=== PATIENT | male | born 1935 | race Caucasian/White ===

== ENCOUNTER 2019-12-19 19:36 | Emergency (ER) | payer BC, MEDICARE ==
[2019-12-19] MEDS ORDERED: TORAdol 30 mg Injection ONE (21:17)
[2019-12-19] MEDS ORDERED: TORAdol 30 mg Injection IV ONE (21:20)
[2019-12-19] MEDS ORDERED: Hydromorphone 1 mg/ml Ampule IV ONE (21:28)
[2019-12-19] MEDS ORDERED: Hydromorphone 1 mg/ml Ampule ONE (21:29)
[2019-12-19] MEDS ORDERED: Zofran 4 MG/2 ML VIAL ONE (22:18)
[2019-12-19] MEDS ORDERED: Zofran 4 MG/2 ML VIAL IV ONE (22:18)
[2019-12-19 22:23] LABS: BASOPHIL % 0.5 % (0.0-0.4); Basophil (Absolute #) 0.03 (0-0.4); Eosinophil % 1.4 % (0.00-5.0); Eosinophil (Absolute #) 0.09 (0-0.5); Hemoglobin 10.4 gm/dl (12.5-18.0); Lymphocyte (Absolute #) 1.49 (1.0-4.6); Lymphocytes % 23.5 % (24.0-44.0); Mean Cell Volume 86.4 fl (78-100); Mean Corpuscular Hgb Concent. 33.5 g/dl (32-36); Mean Platelet Volume 9.5 fl (7.5-11.0); Monocyte (Absolute #) 0.54 (0.0-1.3); Monocytes % 8.5 % (0.0-12.0); Neutrophil % 66.1 % (36.0-66.0); Platelet Count 150 K/mm3 (150-450); Red Blood Count 3.59 M/mm3 (4.1-5.6); Red Cell Distribution Width 13.7 % (11.5-14.0); White Blood Count 6.4 K/mm3 (4.0-10.5)
--- NOTE | 2019-12-19 22:30 | ERPHSYRPT ---
- History of Present Illness Time Seen by Provider: 12/19/19 20:10 Source: patient Exam Limitations: no limitations Patient Subjective Stated Complaint: Pt states he bought an inversion table. He was going to start putting it together a little at a time. So he started taking it out of the box. He went to step over a piece and fell on his face. Only complaint of pain is right shoulder Triage Nursing Assessment: Pt brought in by ambulance with cervical collar in place. Alert & oriented. Respirations easy and non-labored. Pt complaining of pain to right shoulder. No obvious deformities noted. Sensation intact. Pt unable to raise up arm due to increased pain Physician History: Is an 84-year-old male who was putting together an inversion table which she hoped would help his chronic low back pain when a piece got away from him and when he stepped on it it rolled and he went down on his right arm. He denies any loss of consciousness. He complains bitterly of pain in the shoulder and arm. He does have chronic atrial fib is on metoprolol 12.5 daily for control. He is anticoagulated with Eliquis. Occurred: just prior to arrival Reason for Fall: tripped Injuries/Pain Location: upper extremity (Right shoulder and arm) Loss of Consciousness: no loss of consciousness Quality: throbbing Severity of Pain-Max: severe Severity of Pain-Current: severe Modifying Factors: Improves With: movement Associated Symptoms (Fall): denies symptoms Allergies/Adverse Reactions: No Known Drug Allergies Allergy (Unverified 12/28/15 12:58) Home Medications: Apixaban [Eliquis] 5 mg PO DAILY 12/28/15 [History] Folic Acid 0.8 mg PO BID 12/28/15 [History] Hydrochlorothiazide 25 mg [hydroDIURIL 25 MG] 25 mg PO DAILY 12/28/15 [ History] Lisinopril 10 mg [Zestril 10 MG] 10 mg PO DAILY 12/28/15 [History] Magnesium 250 mg PO BID 12/28/15 [History] Methimazole [Tapazole] 5 mg PO HS 12/28/15 [History] Metoprolol Succinate 25 mg Xl* [Toprol-Xl 25MG Tablets] 12.5 mg PO HS [History] Multivit-Minerals/FA/Lycopene [One Daily For Men Tablet] 1 tab PO DAILY [History] Potassium Gluconate 250 mg PO BID 12/28/15 [History] Tamsulosin HCl 0.4 mg PO DAILY 12/28/15 [History] Travel Risk - International Travel Have you traveled outside of the country in past 3 weeks: No - Coronavirus Screening Close contact with a COVID-19 positive Pt in past 14-21 Days: No - Review of Systems Constitutional: No Fever, No Chills Eyes: No Symptoms Ears, Nose, & Throat: No Symptoms Respiratory: No Cough, No Dyspnea Cardiac: No Chest Pain, No Edema, No Syncope Abdominal/Gastrointestinal: No Abdominal Pain, No Nausea, No Vomiting, No Diarrhea Genitourinary Symptoms: No Dysuria Musculoskeletal: No Back Pain, No Neck Pain Skin: No Rash Neurological: No Dizziness, No Focal Weakness, No Sensory Changes Psychological: No Symptoms Endocrine: No Symptoms All Other Systems: Reviewed and Negative - Past Medical History Pertinent Past Medical History: Yes Neurological History: No Pertinent History ENT History: Cataracts Cardiac History: Arrhythmia, Hypertension Respiratory History: No Pertinent History Endocrine Medical History: Hyperthyroidism Musculoskeletal History: No Pertinent History GI Medical History: No Pertinent History History: No Pertinent History Psycho-Social History: Anxiety Male Reproductive Disorders: Prostate Problems - Past Surgical History Past Surgical History: Yes Other Surgical History: Tonsils, and cataract - Social History Smoking Status: Never smoker Drug Use: none - Nursing Vital Signs Nursing Vital Signs: Initial Vital Signs Temperature 98.2 F 12/19/19 19:47 Pulse Rate 61 12/19/19 19:47 Respiratory Rate 20 12/19/19 19:47 Blood Pressure 181/94 12/19/19 19:47 O2 Sat by Pulse Oximetry 92 L 12/19/19 19:47 Pain Scale Pain Intensity 0 - [place] Coma Score Best Eye Response (Ranjit): (4) open spontaneously Best Verbal Response ([place]): (5) oriented Best Motor Response (Ranjit): (6) obeys commands Ranjit Total: 15 - Physical Exam General Appearance: no apparent distress, alert Head Injury: no evidence of injury Eye Exam: PERRL/EOMI ENT Exam: airway nml Neck Exam: normal inspection, No tenderness Respiratory/Chest Exam: normal breath sounds, No chest tenderness, No respiratory distress Cardiovascular Exam: normal heart sounds, regular rate/rhythm Gastrointestinal Exam: soft, No tenderness, No distention, No guarding, No ecchymosis Back Exam: normal inspection, No vertebral tenderness Extremity Exam: other (Examination of extremities other than the right upper extremity is normal the right upper extremity shows tenderness at the shoulder there is also some deformity and swelling mid arm pulses are intact and strong radial nerve function is preserved and tendon function is normal.) Neurologic Exam: alert, oriented x 3, cooperative, sensation nml, No motor deficits Skin Exam: normal color, warm, dry SpO2 Interpretation: normal SpO2: 99 O2 Delivery: Nasal Cannula - Radiology Exams Humerus X-ray Interpretation: Other (Radiologist reports a moderately displaced midshaft fracture right humerus and a nondisplaced fracture of the humeral head and greater tuberosity.) Ordered Tests: Active Orders 24 hr Category Date Time Status Systems Software Specialist STAT Care 12/19/19 19:55 Active EKG-ER Only STAT Care 12/19/19 19:54 Active IV Insertion STAT Care 12/19/19 19:55 Active Oxygen-ED Only Nasal Cannula 2 lpm Care 12/19/19 19:50 Active HUMERUS Stat Exams 12/19/19 19:53 Taken CBC W DIFF Stat Lab 12/19/19 22:20 Completed CMP Stat Lab 12/19/19 22:20 Received PROTIME WITH INR Stat Lab 12/19/19 22:20 Received PTT Stat Lab 12/19/19 22:20 Received TROPONIN Q3H Lab 12/19/19 22:20 Received TROPONIN Q3H Lab 12/20/19 01:00 Ordered TROPONIN Q3H Lab 12/20/19 04:00 Ordered TROPONIN Q3H Lab 12/20/19 07:00 Ordered TROPONIN Q3H Lab 12/20/19 10:00 Ordered Medication Summary Discontinued Medications Generic Name Dose Route Start Last Admin Trade Name Freq PRN Reason Stop Dose Admin Hydromorphone HCl 1 mg 12/19/19 21:28 12/19/19 21:31 Hydromorphone 1 Mg/Ml Ampule IV 12/19/19 21:29 1 mg STAT ONE Administration Hydromorphone HCl Confirm 12/19/19 21:29 Hydromorphone 1 Mg/Ml Ampule Administered 12/19/19 21:30 Dose 1 mg .ROUTE .STK-MED ONE Ketorolac Tromethamine Confirm 12/19/19 21:17 Toradol 30 Mg Injection Administered 12/19/19 21:18 Dose 30 mg .ROUTE .STK-MED ONE Ketorolac Tromethamine 30 mg 12/19/19 21:20 12/19/19 22:00 Toradol 30 Mg Injection IV 12/19/19 21:21 30 mg STAT ONE Administration Ondansetron HCl 4 mg 12/19/19 22:18 12/19/19 22:19 Zofran 4 Mg/2 Ml Vial IV 12/19/19 22:19 4 mg STAT ONE Administration Ondansetron HCl Confirm 12/19/19 22:18 Zofran 4 Mg/2 Ml Vial Administered 12/19/19 22:19 Dose 4 mg .ROUTE .STK-MED ONE Lab/Rad Data: Laboratory Result Diagrams 12/19/19 22:20 Laboratory Results 12/19/19 Range/Units 22:20 WBC 6.4 (4.0-10.5) K/mm3 RBC 3.59 L (4.1-5.6) M/mm3 Hgb 10.4 L (12.5-18.0) gm/dl Hct 31.0 L (42-50) % MCV 86.4 (78-100) fl MCH 29.0 (26-32) pg MCHC 33.5 (32-36) g/dl RDW 13.7 (11.5-14.0) % Plt Count 150 (150-450) K/mm3 MPV 9.5 (7.5-11.0) fl Gran % 66.1 H (36.0-66.0) % Eos # (Auto) 0.09 (0-0.5) Absolute Lymphs (auto) 1.49 (1.0-4.6) Absolute Monos (auto) 0.54 (0.0-1.3) Lymphocytes % 23.5 L (24.0-44.0) % Monocytes % 8.5 (0.0-12.0) % Eosinophils % 1.4 (0.00-5.0) % Basophils % 0.5 (0.0-0.4) % Absolute Granulocytes 4.20 (1.4-6.9) Basophils # 0.03 (0-0.4) - Progress Progress: unchanged - Departure Departure Disposition: Transfer (We contacted Dr. Hood Jose at the trauma center at [facility] who accepted this patient in transfer we also spoke with the ER doctor's PA who or midlevel who was also informed of the patient's transfer.) Clinical Impression: Humerus shaft fracture, Atrial fibrillation Condition: Stable Critical Care Time: No Referrals: YAEL BURTON MD [Primary Care Provider] -
[2019-12-19 22:37] LABS: INR 1.69 (0.8-3.0); PROTIME 19.3 SECONDS (8.83-12.87)
[2019-12-19 22:39] LABS: PTT 52.5 SECONDS (24.1-36.1)
[2019-12-19 22:40] LABS: ALBUMIN 3.5 g/dL (3.5-5.0); ALKALINE PHOSPHATASE 58 U/L (38-126); BLOOD UREA NITROGEN 17 mg/dL (9-20); CHLORIDE 105 mmol/L (98-107); Carbon Dioxide 26 mmol/L (22-30); Creatinine 1 1.06 mg/dL (0.66-1.25); Glucose 149 mg/dL (74-106); Potassium 3.5 mmol/L (3.5-5.1); SGOT/AST 28 U/L (17-59); SGPT/ALT 11 U/L (0-50); SODIUM 139 mmol/L (137-145); Total Protein 5.9 g/dL (6.3-8.2)
[2019-12-19 22:48] VITALS: BP 186/101; PULSE 84; O2SAT 96
--- NOTE | 2019-12-20 09:54 | XRAY ---
Exam: Two-view right humerus films from 12/19/2019. Comparison: None. Indication: 84-year-old male with fall. Findings: AP and 2 lateral images of the right humerus, and a coned-down lateral image of the distal third of the right humerus were obtained. There is a mildly overriding, oblique fracture of the midshaft of the right humerus which is moderately displaced in the medial direction on the frontal view (1.9 cm). There is minimal posterior angulation of the distal humeral fracture element on the lateral images, as well as moderate posterior displacement at the distal fracture site on the lateral image of about 2.5 cm. In addition, the AP view reveals a nondisplaced acute fracture of the lateral aspect of the right humeral head/greater tuberosity. Degenerative changes are seen at the glenohumeral joint and acromioclavicular joint. A small posterior olecranon spur is seen on the lateral radiograph of the distal right humerus. The bones are demineralized. Impression: 1. Moderately displaced and slightly angulated midshaft right humerus oblique fracture, as discussed. 2. In addition, there is an essentially nondisplaced acute fracture at the lateral margin of the right humeral head/greater tuberosity on the AP image. 3. Moderate degenerative change about the right shoulder girdle, bone demineralization, and a small spur of the olecranon process of the proximal right ulna are seen.
== END 2019-12-19 23:03 | disposition short-term general hospital (02) ==
LOC: ED 19:36
DX: S42.301A Unspecified fracture of shaft of humerus, right arm, initial encounter for closed fracture (principal); W01.198A Fall on same level from slipping, tripping and stumbling with subsequent striking against other object, initial encounter; Y93.89 Activity, other specified; Y92.89 Other specified places as the place of occurrence of the external cause; M25.511 Pain in right shoulder; I10 Essential (primary) hypertension; Z79.01 Long term (current) use of anticoagulants; Z79.899 Other long term (current) drug therapy; E05.90 Thyrotoxicosis, unspecified without thyrotoxic crisis or storm; I48.91 Unspecified atrial fibrillation
CPT/HCPCS: 36000; 36415; 73060; 80053; 84484; 85025; 85610; 85730; 93005; 93041; 96374; 96375; 99285; J1170; J1885; J2405